=== PATIENT | female | born 1965 | race Caucasian/White ===

== ENCOUNTER 2016-08-16 07:33 | Day surgery (SDC) | payer BC ==
[~2016-08-16 07:33] MED LIST: LIDOCAINE W/ SODIUM BICARB 0.5 ML SYR ONE; Lactated Ringers 1,000 ML PRIMARY IV ONE; ceFAZolin Inj 2gm (Premix) 50 ML IV ONE
[2016-08-16] MEDS ORDERED: fentaNYL Inj 100 MCG/2 ML VIAL ONE (08:28)
[2016-08-16] MEDS ORDERED: MIDAZOLAM 5 MG/1 ML ONE (08:28)
[2016-08-16] MEDS ORDERED: Sodium Chloride 0.9% vial 10 ML ONE (08:29)
[2016-08-16] MEDS ORDERED: DEXAMETHASONE PF 10 MG/1 ML VIAL ONE (09:07)
[2016-08-16] MEDS ORDERED: BUPivacaine 0.5%/Epi Inj 50 ML VIAL ONE (09:07)
[2016-08-16] MEDS ORDERED: MEPIVACAINE HCL/PF 20 MG/1 ML IV ONE (09:07)
--- NOTE | 2016-08-16 10:40 | CRNA.PROCE ---
Nerve Block Documentation - - Safety Measures: Time Out Taken, Site Verified - - Type of Nerve Block Used: Right Popliteal Fossa Block (Primary anesthetic for hardware removal) Position for Nerve Block: Prone Moniters Used During Block: SPO2, NIBP Oxygen Sumpplented: Yes Sedation Used - Enter Amount in Comment Field: Midazolam (mg): Yes (3 mg), Fentanyl (mcg): Yes (100 mcgs) Skin Prep Used: ChloroPrep (Twice) Draped: No Technique: Nerve Stimulator Nerve Block Needle Used: 80 mm ProBlk II Stimulation Hz: 1 Stimulation Staring mA: 1.8 Stimulation Ending mA: 0.48 Local Anesthetic - Enter Amt in Comment Field: 0.5 % Bupivicaine with Epinephrine 1:200,000 (mL): Yes (25 ml in 3 ml increments), 2 % Mepivacaine (mL) : Yes (14 ml in 3 ml increments) Additives to Nerve Blocks: Dexamethasone (mL): Yes (10 mg)
[2016-08-16] MEDS ORDERED: NORMAL SALINE 10 ML SYRINGE FLUSH IVP PRN (10:52)
[2016-08-16] MEDS ORDERED: HYDROcodone-APAP 10 MG-325 MG TABLET PO PRN (10:52)
--- NOTE | 2016-08-16 11:04 | GEN.OPNOTE ---
Operative Report Surgeon: Luís Ferrera DPM Anesthesia Type: Regional, MAC Anesthesia Provider: Lissette Deluna CRNA Surgery Date: 08/16/16 Preoperative Diagnosis: 1. Left foot pain - M79.672. 2. Pain from implanted hardware, subsequent encounter - T85.848D. 3. Status post bunionectomy - Z98.890 Postoperative Diagnosis: 1. Left foot pain - M79.672. 2. Pain from implanted hardware, subsequent encounter - T85.848D. 3. Status post bunionectomy - Z98.890 Procedure: 1. Hardware removal 1st metatarsal (2 screws). Estimated Blood Loss (mL): 2 (a pneumatic cuff was used about the left ankle for 30 minutes at 250 mmHg pressure) Fluids: 2 g Ancef given preoperatively. 6 and 50 mL lactated Ringer's. Complications: None Description of Procedure: The patient was brought to the operating room and placed in the supine position. They had already been given a popliteal block of the lower extremity , and MAC was continued. The foot was prepped and draped in the usual sterile fashion. A timeout was performed. A preoperative C-arm radiograph was taken to help delineate the area of concern, and this was marked on the foot. The foot was then exsanguinated with an elastic Esmarch, after which a pneumatic cuff was inflated about the ankle to 250 mmHg pressure. An incision was made on top the foot over the old incision site approximately 3 centimeters in length. This is deepened by sharp and blunt dissection to the scar tissue of the subcutaneous tissue and periosteal joint capsule over the neck of the first metatarsal. Utilizing C-arm careful dissection was directed towards the head of the distal screw. Once the appropriate portion of the bone was identified and noted to be slightly soft a K wire was introduced and was able to be threaded directly through the screw. The screw was then able to be backed out. Attention was then directed to the proximal screw. A periosteal elevator freed the area of the screw head. A K-wire was placed down the shaft of the cannulated screw. And then the cannulated screwdriver removed the proximal screw as well. Area was copiously irrigated. The periosteum was reapproximated with 4-0 Vicryl. The subcutaneous tissues were closed with 4-0 Vicryl. The skin was closed with 4-0 nylon. This was reinforced with Mastisol and Steri-Strips. A dressing of Xeroform, fluffs, Kerlix, Coban was applied to the left foot. Cuff was released from the ankle after 30 minutes total time. Capillary return was noted to all toes. Patient was returned recovery. Patient has her postoperative medications already picked up. She has crutches that she can use initially into the blocks were off. She will be seen for her first postoperative visit in 3 days on Friday or Friday next week.
[2016-08-16 11:33] VITALS: RESP 16
[2016-08-16 12:31] VITALS: TEMP 97.4
--- NOTE | 2016-08-16 13:07 | DI ---
XR FOOT COMPLETE MIN 3VW,08/16/2016 10:52 AM: Clinical History: Loose hardware of the left foot with left foot pain. Previous Exam: June 21, 2016 Findings: 3 views of the left foot are obtained, and demonstrate interval removal of hardware within the left f irst metatarsal. There is some overlying soft tissue swelling. Alignment is near-anatomic. Mild degen erative changes are seen of the left first metatarsophalangeal joint. Impression: Status post hardware removal otherwise unremarkable.
== END 2016-08-16 12:00 | disposition home or self-care (01) ==
LOC: SDSC 07:33
PROVIDERS: ATTEND Podiatrist Foot & Ankle Surgery
DX: T85.848A Pain due to other internal prosthetic devices, implants and grafts, initial encounter (principal); Z98.890 Other specified postprocedural states
CPT/HCPCS: 20680; 73630; 76000; A4216; J0690; J2704; J3010; J0670; J1100; J2250; J7120